=== PATIENT | female | born 1990 ===

== ENCOUNTER 2017-07-10 03:20 | Emergency (ER) | payer MEDICAID, OTHER ==
[2017-07-10] MEDS ORDERED: DiphenhydrAMINE 50 mg/ml Inj ONE (03:32)
[2017-07-10] MEDS ORDERED: DiphenhydrAMINE 50 mg/ml Inj IM STA (03:36)
[2017-07-10 03:37] VITALS: BMI 27.4
--- NOTE | 2017-07-10 03:39 | C.PDOC ---
History Of Present Illness Patient BIBA for evaluation of alcohol intoxication. Patient was apparently in the back of a taxi coming home from a club, appeared heavily intoxicated and vomited in the taxi, so motor pool driver called 911. Patient arrives in ED with police escort, agitated and agressive, spitting and trying to bite staff, cursing. Time Seen by Provider: 07/10/17 03:36 Chief Complaint (Nursing): Substance Abuse History Per: EMS History/Exam Limitations: intoxication Onset/Duration Of Symptoms: Unknown Modifying Factor(s): Alcohol Severity: Moderate Associated Symptoms: Anger, Agitation Past Medical History Reviewed: Historical Data, Nursing Documentation, Vital Signs Vital Signs: Last Vital Signs Temp 97.2 F L 07/10/17 05:02 Pulse 82 07/10/17 06:34 Resp 16 07/10/17 06:34 BP 93/45 L 07/10/17 06:34 Pulse Ox 95 07/10/17 06:40 - Medical History PMH: Anxiety, Depression, Post Traumatic Stress Disorder - [facility] GROUP PSYCHOTHERAPY (04/27/17) INDIVIDUAL PSYCHOTHERAPY, SUPPORTIVE (04/27/17) Family History: States: Unknown Family Hx - Social History Hx Alcohol Use: Yes Hx Substance Use: Yes Review Of Systems Review Of Systems: ROS cannot be obtained secondary to pt's inabilty to answer questions. Physical Exam - Physical Exam Appears: Unkempt, Combative, Agitated, Other (spitting and trying to bite staff , cursing and screaming) Skin: Warm, Dry Head: Atraumatic, Normacephalic Eye(s): bilateral: Normal Inspection Cardiovascular: Rhythm Regular (tachycardic ) Respiratory: Normal Breath Sounds, No Rales, No Rhonchi, No Wheezing Extremity: Normal ROM Extremity: Bilateral: Atraumatic, Normal Color And Temperature, Normal ROM ED Course And Treatment O2 Sat by Pulse Oximetry: 95 (RA) Pulse Ox Interpretation: Normal Progress Note: Patient agressive and trying to bite and spit on staff. She was placed in 4 point restraints on arrival, given IM Ativan, Haldol and Benadryl. Patient's phone is , being charged so we can contact family. UA, UPreg, UDS and alcohol level ordered. Patient given IV NS bolus. 4:30AM- Patient sleeping comfortably, in no distress. 6:40AM - Patient arousable to verbal stimuli. Pending sobriety. Disposition - Disposition Disposition Time: 07:00 Condition: STABLE Instructions: Alcohol Intoxication (ED) Forms: [facility] ([place]) - Clinical Impression Clinical Impression: Alcohol intoxication, Agitation Physician Patient Turnover Patient Signed Over To: Ciro Hay DO Handoff Comments: pending sobriety
[2017-07-10 04:37] LABS: HCG,QUALITATIVE URINE NEGATIVE (NEGATIVE)
[2017-07-10] MEDS ORDERED: Sodium Chloride 0.9% 1,000 ML IV ONE ×2 (04:47→05:04)
[2017-07-10 04:52] LABS: URINE BACTERIA MOD (<OCC); URINE BILIRUBIN NEGATIVE (NEGATIVE); URINE BLOOD 1+ (NEGATIVE); URINE CLARITY Clear (Clear); URINE COLOR Straw (YELLOW); URINE GLUCOSE (UA) NORMAL (Normal); URINE LEUKOCYTE ESTERASE NEG Leu/uL (Negative); URINE NITRATE NEGATIVE (NEGATIVE); URINE PROTEIN NEGATIVE (NEGATIVE); URINE UROBILINOGEN NORMAL mg/dL (0.2-1.0)
[2017-07-10] MEDS ORDERED: Sodium Chloride 0.9% 1,000 ML ONE ×2 (04:53→06:40)
[2017-07-10 04:59] LABS: BARBITURATES, UR NEGATIVE (NEGATIVE); BENZODIAZEPINES, UR NEGATIVE (NEGATIVE); OPIATES, UR NEGATIVE (NEGATIVE); PHENCYCLIDINE, UR NEGATIVE (NEGATIVE)
[2017-07-10 07:57] VITALS: O2SAT 97
[2017-07-10 11:31] VITALS: BP 100/64; PULSE 78; RESP 18; TEMP 98.1
== END 2017-07-10 11:57 | disposition home or self-care (01) ==
LOC: C.ER 03:20
DX: F10.129 Alcohol abuse with intoxication, unspecified (principal); R45.1 Restlessness and agitation
CPT/HCPCS: 80320; 80324; 80345; 80346; 80349; 80353; 80358; 80361; 81001; 82948; 83992; 84703; 96360; 96361; 96372; 99285; J1200; J1630; J2060; J7040